=== PATIENT | female | born 1990 | race Asian ===

== ENCOUNTER → 2021-11-02 | Outpatient (CLI) | payer SELFPAY ==
--- NOTE | 2021-11-02 11:52 | Diagnostic Imaging Report ---
INDICATION: Positive TB test. TIME OF EXAM: 11:52 a.m. COMPARISON: No prior studies are available for comparison. FINDINGS: Heart size is normal. Lungs are clear. No infiltrates are seen. There is no effusion or pneumothorax. The pulmonary vascularity is normal. IMPRESSION: No acute cardiopulmonary process is detected. Dictated by: Dictated on workstation # [id number]
== END ==
LOC: RAD 11:13
PROVIDERS: ATTEND Nurse Practitioner Family
DX: Z11.1 Encounter for screening for respiratory tuberculosis (principal); R76.11 Nonspecific reaction to tuberculin skin test without active tuberculosis
CPT/HCPCS: 71045